=== PATIENT | male | born 1955 | race Caucasian/White ===

== ENCOUNTER → 2019-02-12 | Outpatient (CLI) | payer MEDICARE, OTHER | LOC: LAB 14:31 | PROVIDERS: ATTEND Family Medicine | DX: K86.9 Disease of pancreas, unspecified (principal) | CPT/HCPCS: 36415; 82150; 83690 ==

== ENCOUNTER → 2019-02-15 | Outpatient (CLI) | payer MEDICARE, OTHER | LOC: LAB 16:21 | PROVIDERS: ATTEND Family Medicine | DX: E78.5 Hyperlipidemia, unspecified (principal) | CPT/HCPCS: 36415; 83690 ==